=== PATIENT | male | born 2000 | race Caucasian/White ===

== ENCOUNTER 2024-08-13 15:32 | Emergency (ER) | payer MEDICAID ==
[~2024-08-13] VITALS: Ht 172.7 cm; Wt 61.0 kg
[2024-08-13 15:48] VITALS: BP 115/65; PULSE 48; RESP 16; TEMP 98; O2SAT 99
== END 2024-08-13 17:57 | disposition left against medical advice (07) ==
LOC: ER 15:33
DX: G43.909 Migraine, unspecified, not intractable, without status migrainosus (principal); Z53.21 Procedure and treatment not carried out due to patient leaving prior to being seen by health care provider

== ENCOUNTER 2024-10-06 19:09 | Emergency (ER) | payer MEDICAID ==
[~2024-10-06] VITALS: Ht 172.7 cm; Wt 63.4 kg
[2024-10-06 19:10] VITALS: BP 110/62; PULSE 65; RESP 16; TEMP 98.3; O2SAT 99
[2024-10-06] MEDS ORDERED: CLOB30CR11 TOP (20:34)
--- NOTE | 2024-10-06 20:34 | Physician Documentation ---
History of Present Illness ~ Chief Complaint: See Chief Complaint Stated Complaint: LOW BLOOD PRESSURE Time Seen by MD: 19:34 OK to notify your PCP?: Yes Source: patient, family HPI Patient is seen today originally for a low blood pressure reading at his local doctor's office. Patient also however has complaint of skin lesion of his left forearm that patient states it is very itchy in his been growing for the last few days. Patient has no other concern or complaint at this time. Patient states he was given a oral antibiotic from his primary care provider today. Patient does admit to frequent headaches and states he sometimes feels a little lightheaded and was concerned about his lip of the pressure. He has no other c oncern or complaint at this time and denies any current chest pain or shortness of breath or abdominal pain or nausea, vomiting, diarrhea. Medication Reconciliation Allergies: Coded Allergies: No Known Allergies (Unverified , 08/13/24) Review of Systems Constitutional: Denies: fever, chills Eyes: Denies: discharge, itching ENT: Denies: ear pain, nose discharge, throat pain Respiratory: Denies: cough, shortness of breath Cardiovascular: Reports: no symptoms reported Gastrointestinal: Denies: abdominal pain, nausea, vomiting Genitourinary: Denies: burning, dysuria Male Genitalia: Denies: penile discharge, testicular pain Neurological: Denies: headache, dizziness Musculoskeletal: Denies: pain, joint pain, muscle pain Integumentary: Denies: rash, lesions Allergic/Immunologic: Denies: hives, itching Hematologic/Lymphatic: Reports: no symptoms reported Endocrine: Reports: no symptoms reported Psychiatric: Reports: no symptoms reported Physical Exam Vital Signs: Temperature: 98.3, Source: Oral, Heart Rate: 65, Respiratory Rate: 16, BP: 110/62, Pulse Oximetry: 99, Weight: 63.400 Oxygen Flow Rate: 0 Physical Exam General: Awake and Alert, no acute distress. HEENT: Conjunctiva pink, Sclera clear, Mucus Membranes moist. Neck: Supple without masses and tenderness. Resp: Unlabored. Lungs clear to auscultation bilaterally. Heart: Regular Rate and rhythm, normal S1 and S2 without murmur, rub or gallop. Abdomen: Soft and non tender no organomegaly Extremities: No cyanosis,clubbing or edema. Skin: Patient on exam does have skin lesion size of a dime on volar aspect of left forearm with surrounding hives/vesicle formation consistent with contact dermatitis. Progress Results/Orders Results/Orders Vital Signs 10/06/24 19:10 Temp 98.3 Pulse 65 Resp 16 B/P (MAP) 110/62 Pulse Ox 99 O2 Flow Rate 0 Medical Decision Making Findings Patient is seen today originally for a low blood pressure reading at his local doctor's office. Patient also however has complaint of skin lesion of his left forearm that patient states it is very itchy in his been growing for the last few days. Patient has no other concern or complaint at this time. Patient states he was given a oral antibiotic from his primary care provider today. Patient does admit to frequent headaches and states he sometimes feels a little lightheaded and was concerned about his lip of the pressure. He has no other concern or complaint at this time and denies any current chest pain or shortness of breath or abdominal pain or nausea, vomiting, diarrhea. Patient's blood pressure is very stable today at 110 mm Hg systolic. Patient was given prescription of clobetasol topical cream to be applied twice a day for two weeks. Patient will take other medications as prescribed. Patient will continue healthy diet and activity level and will follow up with primary care for further eval and treatment. Departure Disposition: HOME / SELF CARE / HOMELESS Impression: Primary Impression: Contact dermatitis Qualified Codes: L25.9 - Unspecified contact dermatitis, unspecified cause Condition: Stable Discharge Instructions: Hypotension, [id number] Additional Instructions: Patient was given prescription of clobetasol topical cream to be applied twice a day for two weeks. Patient will take other medications as prescribed. Patient will continue healthy diet and activity level and will follow up with primary care for further eval and treatment. Patient's blood pressure was very stable today with systolic at 110. Referrals: NO PRIMARY CARE PROVIDER (PCP) Prescriptions Clobetasol Propionate (Clobetasol Propionate) 0.05 % Cream..g. 1 APPLIC TOP Q12H for 14 Days, #30 GM 0 Refills apply to affected area(s) Prov: SILVIA REDDING 10/06/24 Signature Scribe Signature: No scribe Attestation: No scribe SILVIA REDDING Oct 06, 2024 20:33
== END 2024-10-06 21:10 | disposition home or self-care (01) ==
LOC: ER 19:09
DX: L25.9 Unspecified contact dermatitis, unspecified cause (principal); R42 Dizziness and giddiness; R51.9 Headache, unspecified
CPT/HCPCS: 99283